=== PATIENT | male | born 1970 | race Caucasian/White ===

== ENCOUNTER → 2023-10-16 11:57 | Outpatient (BNVA) | payer SELFPAY | PROVIDERS: PCP Internal Medicine; Visit Provider Physician Assistant Medical | DX: Z02.79 Encounter for issue of other medical certificate (principal) ==

== ENCOUNTER 2025-02-17 10:19 | Outpatient (AMB) | payer OTHER, SELFPAY ==
[2025-02-17 10:34] VITALS: BP 114/60; PULSE 89; TEMP 36.8; O2SAT 98; BMI 32.4
--- NOTE | 2025-02-17 10:34 | AM.OFFWIN_ITS ---
Intake Vital Signs 02/17/25 10:34 Height 6 ft 2 in Weight 252 lb BMI 32.4 BP 114/60 Blood Pressure Location Lt brachial Position Sitting Pulse 89 Pulse Source Pulse Oximeter Temp 98.3 F Temp Source Oral Pulse Oximetry (%) 98 Oxygen Delivery Method Room Air Intake Visit Reasons: EP-chest palpitation, lt arm numbness Intake Note: presents with chest palpitations, off/on numbness/tingly to left arm, dizziness and feels shaky. pt reports that he feels pain/discomfort radiating up to throat when laying down. pt notes palpitations increase when overeating and the day after drinking too much alcohol. Allergies levofloxacin Adverse Reaction (Unknown, Verified 02/17/25 10:37) severe bloating, stomach pains Lactose Adverse Reaction (Unknown, Uncoded 12/28/19 00:00) diarrhea Do you need a note to return to daycare/school/sports/work: Yes HPI HPI Comments History of Present Illness Details History of Present Illness - The patient is a 54-year-old male pres enting with chest discomfort, dizziness, and anxiety. - Reports chest discomfort as a weirdnes s or pressure, without pain or shortness of breath, accompanied by numbness and tingling in the arm. - Symptoms are exacerbated by stress and alcohol consumption, resolving after a day of abstinence. - Experiences dizziness and shakiness, a ttributed to stress and alcohol use. - Reports palpitations and chest pressur e, sometimes with dizziness. - Consumes significant alcohol daily, ty pically a 12-pack or more, acknowledging its impact on symptoms. - Denies smoking, drug use, or family hi story of heart attacks, though brother has heart issues. - History of anxiety, worsened recently due to personal stressors. 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 - He denies weakness, tremors, dizziness , SOB, HUGHES, abd pain, n/v/d Physical Exam General: Cooperative, healthy appearing, comfortable, no acute distress and well developed Orientation: Patient oriented x3 Eyes: Appearance normal, both eyes and all related structures Neck: Normal visual inspection and Yes full ROM. No carotid bruits noted. Respiratory: Normal respiratory effort and able to speak in complete sentences. Clear to auscultation bilaterally Cardiovascular: Regular rate and rhythm. Normal S1 and S2 GI: Normal to inspection. Soft to palpation and nontender. No guarding or rebound tenderness noted. Skin: No rashes or lesions noted Neuro: Patient oriented x3 Extremities: Normal to inspection. No edema noted. Patient was informed and verbally consented to the use of an ambient scribe for clinic note documentation during this visit. Review of Systems Const All systems reviewed & are unremarkable except as noted in HPI and below Physical Exam Vital Signs: Last Vital Signs Temp 98.3 F 02/17/25 10:34 Pulse 89 02/17/25 10:34 BP 114/60 02/17/25 10:34 Pulse Ox 98 02/17/25 10:34 Oxygen Delivery Method Room Air 02/17/25 10:34 BMI result Body Mass Index 32.4 Office Procedures EKG Details: Reviewed EKG, NSR at 70 bpm, No ST elevations 00136-[id number], Complete Assessment & Plan Assessment & Plan (1) Chest pressure: Code(s): R07.89 - Other chest pain Plan Most likely anxiety vs GERD vs gastritis vs angina Plan - A chest x-ray was ordered to evaluate the chest discomfort further. - Prescribed medication for gastroesophageal reflux disease to manage chest pressure and palpitations. - Prescribed medication for anxiety, with consideration for liquid or gel capsule forms due to difficulty swallowing tablets. - Advised follow-up with primary care physician, Dr. Kapadia, for ongoing management and evaluation. Orders: Orders XR chest 2V Today R05.9 - Cough, unspecified AMB EKG-In Office Today R07.9 - Chest pain, unspecified Medications: New omeprazole 20 mg PO DAILY 30 caps 0RF hydroxyzine HCl 25 mg PO Q6H 28 tabs 0RF 7 days Coding Level of Care Code Est Pt Level 4 (50143) Diagnoses Chest pressure R07.89 CPT Codes EKG - CPT: 45313-[id number], Complete ([id number])
--- OUTSIDE RECORDS SUMMARY | 2025-02-17 11:19 | XMS_ITS | Clinical Summary ---
Author Organization [facility] Address [address] [place] [address] Phone Care Team Providers Care Wide Load Escort Name Role Phone Physician, No Pcp Primary Care Provider Unavaila ble Allergies No known active allergies Medications methocarbamoL (ROBAXIN) 750 mg tablet Take 1 tablet (750 mg total) by mouth 4 (four) times a day for 10 days. 40 each 12/07/2024 Active Encounters Date Type Department Care Team Description 12/07/2024 11:45 AM EDT - 12/07/2024 1:00 PM EDT Emergency [facility] Emergency [address] [place] [address] Cervical radiculopathy (Primary Dx) Discharge Disposition: Home or Self Care from Last 3 Months Social History Tobacco Use Types Packs/Day Years Used Date Smoking Tobacco: Never Assessed Sex and Gender Information Value Date Recorded Sex Assigned at Not on file Legal Sex Male 3:12 PM EST Gender Identity Not on file Sexual Orientation Not on file Obstetrics History Last Filed Vital Signs Vital Sign Reading Time Taken Comments Blood Pressure 174/95 12/07/2024 10:25 AM EDT Pulse 107 12/07/2024 10:25 AM EDT Temperature 37.2 C (99 F) 12/07/2024 10:25 AM EDT Respiratory Rate 16 12/07/2024 10:25 AM EDT Oxygen Saturation 99% 12/07/2024 10:25 AM EDT Inhaled Oxygen Concentration - - Weight 122 kg (270 lb) 12/07/2024 10:25 AM EDT Height 188 cm (6' 2 ) 12/07/2024 10:25 AM EDT Body Mass Index 34.67 12/07/2024 10:25 AM EDT Plan of Treatment Health Maintenance Due Date Last Done Comments Hepatitis B Vaccines (1 of 3 - 19+ 3-dose series) 1991 Pneumococcal Vaccine: 50+ Ye ars (1 of 1 - PCV) 2022 Zoster Vaccines (1 of 2) 2022 COVID-19 Vaccine (1 - 2023-2 5 season) 2024 Depression Screening 07/29/2024 Cholesterol Screening (Lipid Panel) 12/07/2024 Colorectal Cancer Screening: Colonoscopy 12/07/2024 HIV Screening 12/07/2024 Hepatitis C Screening 12/07/2024 Social Influencers of Health Screening 12/07/2024 Influenza Vaccine (#1) 2025 DTaP,Tdap,and Td Vaccines (2 - Td or Tdap) 01/28/2027 01/28/2017 HIB Vaccines Aged Out No longer eligi ble based on patient's age to complete this topic HPV Vaccines Aged Out No longer eligi ble based on patient's age to complete this topic Hepatitis A Vaccines Aged Out No long er eligible based on patient's age to complete this topic IPV Vaccines Aged Out No longer eligi ble based on patient's age to complete this topic MMR Vaccines Aged Out No longer eligi ble based on patient's age to complete this topic Meningococcal ACWY Vaccine Aged Out N o longer eligible based on patient's age to complete this topic Meningococcal B Vaccine Aged Out No l onger eligible based on patient's age to complete this topic RSV Immunization Patients Un sangeeta 20 months Aged Out No longer eligible b ased on patient's age to complete this topic Varicella Vaccines Aged Out No longer eligible based on patient's age to complete this topic Procedures Procedure Name Priority Date/Time Associated Diagnosis Comments ECG ANNOTATED 12/08/2024 XR SHOULDER 2+ VIEWS LEFT STAT 12/07/2024 12:12 PM EDT ECG 12-LEAD STAT 12/07/2024 10:31 AM EDT from Last 3 Months Results * ECG-Annotated (12/08/2024) us Provider Onbase ECG ORDERABLES Final Result * XR Shoulder 2+ Views Left (12/07/2024 12:12 PM EDT) Anatomical Region Laterality Modality Upper Extremities, Shoulder Left Radi ographic Imaging 12/07/2024 12:1 4 PM EDT Impressions 12/07/2024 12:15 PM EDT Normal examination. Code 17080 -------- FINAL REPORT -------- Dictated By: Lauri Lovelace Dictated Date: 12/07/2024 12:14 ET Assigned Physician: Lauri Lovelace Reviewed and Electronically Signed By: Lauri Lovelace Signed Date: 12/07/2024 12:15 ET Workstation ID: [id number] Transcribed By: Self Edit Transcribed Date: 12/07/2024 12:14 ET Narrative 12/07/2024 12:15 PM EDT HISTORY: The patient is a 54-year-old male with left shoulder pain. No history of trauma is provided. FINDINGS: AP, left posterior oblique, and transscapular views of the left shoulder are obtained. The study demonstrates no fracture, dislocation, arthritic change, or other bony abnormality. No soft tissue abnormality is seen. Procedure Note Lauri Lovelace MD - 12/07/2024 HISTORY: The patient is a 54-year-old male with left shoulder pain. Nohistory of trauma is provided. FINDINGS: AP, left posterior oblique, and transscapular views of the leftshoulder are obtained. The study demonstrates no fracture, dislocation,arthritic change, or other bony abnormality. No soft tissue abnormality isseen. IMPRESSION: Normal examination. Code 47398 -------- FINAL REPORT -------- Dictated By: Lauri Lovelace Dictated Date: 12/07/2024 12:14 ET Assigned Physician: Lauri Lovelace Reviewed and Electronically Signed By: Lauri Lovelace Signed Date: 12/07/2024 12:15 ET Workstation ID: [id number] Transcribed By: Self Edit Transcribed Date: 12/07/2024 12:14 ET Miguel A Grande MD IMG XR PROCEDURES Final Result * ECG 12 lead (12/07/2024 10:31 AM EDT) Ventricular Rate ECG 105 BPM GEMUSE Atrial Rate 105 BPM GEMUSE P-R Interval 146 ms GEMUSE QRS Duration 72 ms GEMUSE Q-T Interval 322 ms GEMUSE QTc 425 ms GEMUSE P Wave [place] 54 degrees GEMUSE R [place] 3 degrees GEMUSE T [place] 26 degrees GEMUSE ECG Interpretation Sinus tachycardia Normal ECG No previous ECGs available Confirmed by Lyle SALEEM JOHN ([id number]) on 12/07/2024 7:42:03 PM GEMUSE 12/07/2024 10:3 1 AM EDT 12/07/2024 7:42 PM EDT Miguel A Grande MD ECG ORDERABLES Final Result GEMUSE from Last [address] [place] [id number] MEDICAID PENDING MD AMI [id number] Care Teams Wide Load Escort Relationship Specialty Start Date End Date Physician, No Pcp PCP - General 12/07/24
== END 2025-02-17 11:53 | disposition home or self-care (01) ==
PROVIDERS: PCP Internal Medicine; Visit Provider Physician Assistant Medical
DX: R07.89 Other chest pain (principal)

== ENCOUNTER 2025-02-17 10:19 | Outpatient (REF) | payer OTHER, SELFPAY ==
--- NOTE | ~2025-02-17 | XR_ITS ---
EXAMINATION: XR CHEST CLINICAL INFORMATION: R05.9 - Cough, unspecified COMPARISON: None available. TECHNIQUE: 2 views of the chest were obtained. FINDINGS: The cardiac, hilar, and mediastinal contours are normal. The lungs are clear bilaterally. There is no pneumothorax or pleural effusion. There is no focal osseous or soft tissue abnormality. XR/XR chest 2V IMPRESSION: No active pulmonary disease. Electronically signed by: Andrew Rubio MD 02/17/2025 11:59 AM EDT
== END 2025-02-17 10:20 | disposition home or self-care (01) ==
LOC: HO.HMGCX 10:19
PROVIDERS: PCP Internal Medicine; Visit Provider Physician Assistant Medical
DX: R00.2 Palpitations (principal); R07.89 Other chest pain; R05.9 Cough, unspecified; K21.9 Gastro-esophageal reflux disease without esophagitis; R20.0 Anesthesia of skin; R42 Dizziness and giddiness; R20.2 Paresthesia of skin; F41.9 Anxiety disorder, unspecified; F10.90 Alcohol use, unspecified, uncomplicated
CPT/HCPCS: 71046; 93005; 99212

== ENCOUNTER → 2025-02-17 11:42 | Outpatient (BNV) | payer OTHER, SELFPAY | PROVIDERS: PCP Internal Medicine; Visit Provider Radiology Diagnostic Radiology | DX: R05.9 Cough, unspecified (principal) | CPT/HCPCS: 71046 ==

== ENCOUNTER 2025-03-30 10:58 | Outpatient (AMB) | payer OTHER, SELFPAY ==
[2025-03-30 11:04] VITALS: BP 110/62; PULSE 114; TEMP 37.1; O2SAT 98; BMI 31.3
--- NOTE | 2025-03-30 11:04 | MHC.OFFWIV ---
Intake Vital Signs 03/30/25 11:04 Height 6 ft 2 in Weight 244 lb BMI 31.3 BP 110/62 Blood Pressure Location Rt brachial Position Sitting Pulse 114 H Pulse Source Pulse Oximeter Temp 98.7 F Temp Source Oral Pulse Oximetry (%) 98 Oxygen Delivery Method Room Air Intake Visit Reasons: ep pain on left side along the ribs Intake Note: pt presents with left sided rib pain after having epigastritis Allergies levofloxacin Adverse Reaction (Unknown, Verified 02/17/25 10:37) severe bloating, stomach pains Lactose Adverse Reaction (Unknown, Uncoded 12/28/19 00:00) diarrhea Medication List - Last Reconciled 03/30/25 by Rodrigo Gan MD hydroxyzine HCl 25 mg PO Q6H 7 days omeprazole 20 mg PO DAILY Do you need a note to return to daycare/school/sports/work: Yes HPI ep pain on left side along the ribs HPI Details Chief Complaint The patient experiences left-sided chest discomfort and difficulty breathing. History of Present Illness The patient is a 54 year old male presenting with left-sided chest discomfort and difficulty breathing. Left-sided chest discomfort: - The discomfort started a couple of days ago while the patient was working. - The sensation began after eating and felt like gas or pressure in the chest. - The discomfort was not initially painful but progressed in severity. - The discomfort is located on the left side of the chest and moved toward the side, described as lower side pain over the epigastric chest area. - It is worsened by deep breathing. - No arm radiation was noted. - The patient has not taken any self-medication except Tums, which he has not used yet. 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 - No history of recent injury or fall was reported. Difficulty breathing: - Associated with the left-sided chest discomfort, the patient finds it difficult to breathe deeply. - The breathing difficulty coincides with the onset of the chest discomfort. - No previous history of similar events was noted. Medical History: - History of palpitations with no associated pain, evaluated with EKG in January, which showed no acute findings. 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 - The patient consumes alcohol but is trying to reduce consumption, acknowledging a high intake. Diagnostic Results: Tests: - EKG performed shows normal sinus rhythm with no acute findings. Problem List - Left-sided chest discomfort - Difficulty breathing - History of palpitations Patient Instructions - take Famotidine as prescribed. up to twice a day - Discuss with the pharmacy regarding smaller or alternative tablet forms of medication if swallowing is difficult. - Arrange follow-up appointments as needed for continuity of care and ongoing management. - take Tylenol otc for pluretic chest pain as needed Review of Systems - General: No fever no chills - Neurological: No headaches no dizziness - Ear nose throat: No sore throat no hearing difficulty no ear pain - Cardiovascular: No syncope - Gastrointestinal: No nausea vomiting or diarrhea - Endocrine: No polyuria polydipsia no heat intolerance - Genitourinary: No dysuria , no blood in urine Physical Exam General: No acute distress HEENT: No acute findings Neck: Supple Respiratory system: Difficulty breathing due to pain, no audible wheeze Cardiovascular: S1-S2 regular in rate and rhythm, EKG shows normal sinus rhythm, no acute findings Gastrointestinal: Left-sided pain more so lower side of the chest over the epigastric area, pleuritic in nature Extremities: No new findings 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: Alert awake oriented x3 motor sensory intact Skin: Normal turgor Physical Exam Vital Signs: Last Vital Signs Temp 98.7 F 03/30/25 11:04 Pulse 114 H 03/30/25 11:04 BP 110/62 03/30/25 11:04 Pulse Ox 98 03/30/25 11:04 Oxygen Delivery Method Room Air 03/30/25 11:04 BMI result Body Mass Index 31.3 Office Procedures EKG 10740-[id number], Complete Assessment & Plan Assessment & Plan (1) Chest pain: Code(s): R07.9 - Chest pain, unspecified Qualifiers: Chest pain type: other chest pain Qualified Code(s): R07.89 - Other chest pain (2) Pain aggravated by breathing: Code(s): R07.1 - Chest pain on breathing (3) Stomach burning: Code(s): K30 - Functional dyspepsia Plan Chief Complaint The patient experiences left-sided chest discomfort and difficulty breathing. History of Present Illness The patient is a 54 year old male presenting with left-sided chest discomfort and difficulty breathing. Left-sided chest discomfort: - The discomfort started a couple of days ago while the patient was working. - The sensation began after eating and felt like gas or pressure in the chest. - The discomfort was not initially painful but progressed in severity. - The discomfort is located on the left side of the chest and moved toward the side, described as lower side pain over the epigastric chest area. - It is worsened by deep breathing. - No arm radiation was noted. - The patient has not taken any self-medication except Tums, which he has not used yet. 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 - No history of recent injury or fall was reported. Difficulty breathing: - Associated with the left-sided chest discomfort, the patient finds it difficult to breathe deeply. - The breathing difficulty coincides with the onset of the chest discomfort. - No previous history of similar events was noted. Medical History: - History of palpitations with no associated pain, evaluated with EKG in January, which showed no acute findings. 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 - The patient consumes alcohol but is trying to reduce consumption, acknowledging a high intake. Diagnostic Results: Tests: - EKG performed shows normal sinus rhythm with no acute findings. Problem List - Left-sided chest discomfort - Difficulty breathing - History of palpitations Patient Instructions - take Famotidine as prescribed. up to twice a day - Discuss with the pharmacy regarding smaller or alternative tablet forms of medication if swallowing is difficult. - Arrange follow-up appointments as needed for continuity of care and ongoing management. - take Tylenol otc for pluretic chest pain as needed Medications: New famotidine 20 mg PO BID 180 tabs 0RF 90 days Coding Level of Care Code Est Pt Level 5 (50813) Diagnoses Other chest pain R07.89 Chest pain type: other chest pain Pain aggravated by breathing R07.1 Stomach burning K30 CPT Codes EKG - CPT: 51767-Yrvvzxdowcuvokquz, Complete ([id number]) Time Spent (min) 40 Comment Reviewing chart/labs/kfjc-yf-gwop/EKG/coordination of care
--- OUTSIDE RECORDS SUMMARY | 2025-03-30 12:34 | XMS_ITS | Clinical Summary ---
Author Organization [facility] Address [address] [place] [phone] Phone Care Team Providers Care Sales And Service Advisor Name Role Phone Physician, No Pcp Primary Care Provider Unavaila ble Allergies No known active allergies Medications methocarbamoL (ROBAXIN) 750 mg tablet Take 1 tablet (750 mg total) by mouth 4 (four) times a day for 10 days. 40 each 12/07/2024 Active Social History Tobacco Use Types Packs/Day Years [...] on patient's age to complete this topic Insurance [facility] [id number] [id number] MEDICAID P[place]ING [place] [id number] Care Teams Sales And Service Advisor Relationship Specialty Start Date End Date Physician, No Pcp PCP - General 12/07/24
== END 2025-03-30 12:12 | disposition home or self-care (01) ==
PROVIDERS: PCP Internal Medicine; Visit Provider Internal Medicine
DX: R07.1 Chest pain on breathing (principal); K30 Functional dyspepsia

== ENCOUNTER → 2025-03-30 10:58 | Outpatient (BNVA) | payer OTHER, SELFPAY | PROVIDERS: PCP Internal Medicine; Visit Provider Internal Medicine | DX: R07.1 Chest pain on breathing (principal); R07.89 Other chest pain; K30 Functional dyspepsia | CPT/HCPCS: 93005; 99212 ==